=== PATIENT | male | born 1935 | race Caucasian/White ===

== ENCOUNTER 2022-05-16 13:42 | Outpatient (CLI) | payer MEDICARE, SELFPAY ==
--- NOTE | ~2022-05-16 | MR_ITS ---
EXAMINATION: MR pelvis wo/w con DATE: 05/16/2022 15:47 INDICATION: Prostate cancer. TECHNIQUE: Magnetic resonance imaging (MRI) of the pelvis was performed without and with 15 mL MultiH ance intravenous contrast. COMPARISON: None. FINDINGS: The prostate is mildly enlarged. There are no pathologically enlarged lymph nodes. There is a left in guinal hernia containing fat. There is prominent fat in right inguinal canal that may be a hernia. Th e bladder is distended. There is increased T2-weighted signal intensity and enhancement involving a r ight hip adductor muscle, consistent with mild strain. IMPRESSION: 1. Mildly enlarged prostate. No evidence of metastatic disease. Reviewed, dictated and finalized at location A.
== END 2022-05-16 13:43 | disposition home or self-care (01) ==
PROVIDERS: PCP Internal Medicine; Visit Provider Radiology Radiation Oncology
DX: C61 Malignant neoplasm of prostate (principal); N40.0 Benign prostatic hyperplasia without lower urinary tract symptoms
CPT/HCPCS: 72197; A9577